=== PATIENT | female | born 1950 | race Caucasian/White ===

== ENCOUNTER 2021-06-15 11:38 | Inpatient (IN) | payer MEDICARE, BC ==
[~2021-06-15] VITALS: Ht 160 cm; Wt 79.4 kg
[2021-06-15] MEDS ORDERED: DEXAMETHASONE SOD PHOSPHATE 10 MG/ML VIAL ONE (12:27)
[2021-06-15] MEDS ORDERED: AZITHROMYCIN 500 MG in IV D5W 250 ML IV ONE (12:30)
[2021-06-15] MEDS ORDERED: DEXAMETHASONE SOD PHOSPHATE 6 MG in IV D5W 50 ML IV ONE (12:30)
[2021-06-15] MEDS ORDERED: ALPR0.5T8 PO (12:51)
[2021-06-15] MEDS ORDERED: TEMA30CA PO (12:51)
[2021-06-15] MEDS ORDERED: LEVO75TA7 PO (12:51)
[2021-06-15] MEDS ORDERED: LIRA0.6P2 SQ (12:51)
[2021-06-15] MEDS ORDERED: RAME8TAB24 PO (12:51)
[2021-06-15] MEDS ORDERED: QUET25TA PO (12:51)
[2021-06-15 13:11] LABS: ABG BASE EXCESS 0.8 mmol/L; ABG OXYGEN SATURATION 95.8 % (92.0-98.5); ABG PCO2 35.6 mmHg (35.0-45.0); ABG PH 7.453 (7.350-7.450); ABG PO2 85.8 mmHg (75.0-100.0); AaDO2 158.5 mmHg; MetHb 0.3 % (0.0-1.5); O2Hb 95.5 % (94.0-97.0); SITE, ABG Right Radial; VENT MODE, BG NASAL CANNULA
--- NOTE | 2021-06-15 13:13 | NUR ---
FAHEEM RELAYED TO . NO NEED FOR HO FLOW O2 AT THIS TIME.
[2021-06-15 13:14] LABS: BASOPHILS % (AUTO) 0.7 % (0.0-2.0); HEMATOCRIT 44 % (33-45); HEMOGLOBIN 14.6 g/dL (11.5-14.8); LYMPHOCYTES # (AUTO) 0.5 K/uL (0.8-4.8); LYMPHOCYTES % (AUTO) 12.7 % (20.0-44.0); MEAN CORPUSCULAR HGB CONC 33 g/dl (31.0-36.0); MEAN CORPUSCULAR VOLUME 91 fL (82-100); MONOCYTES # (AUTO) 0.4 K/uL (0.1-1.30); MONOCYTES % (AUTO) 10.9 % (2.0-12.0); NEUTROPHILS % (AUTO) 75.7 % (43.0-81.0); PLATELET COUNT (AUTO) 133 K/uL (150-450); RED BLOOD CELL COUNT(AUTO) 4.87 MIL/uL (4.0-5.2); WHITE BLOOD COUNT (AUTO) 3.9 K/uL (4.3-11.0)
[2021-06-15 13:20] LABS: CALCIUM, SERUM 8.7 mg/dL (8.5-10.1); CARBON DIOXIDE 28 mmol/L (21-32); CHLORIDE 102 mmol/L (98-107); CREATININE 0.9 mg/dL (0.6-1.3); GLUCOSE 207 mg/dL (74-106); POTASSIUM 4.3 mmol/L (3.5-5.1); SODIUM SERUM 139 mmol/L (136-145); UREA NITROGEN, BLOOD 11 mg/dL (7-18)
[2021-06-15 13:33] LABS: ALANINE AMINOTRANSFERASE 53 U/L (12-78); ALBUMIN 3.3 g/dL (3.4-5.0); ALKALINE PHOSPHATASE 64 U/L (46-116); ASPARTATE AMINOTRANSFERASE 47 U/L (15-37); BILIRUBIN,TOTAL 0.8 mg/dL (0.2-1.0)
--- NOTE | 2021-06-15 13:35 | NUR ---
CALLED NURSING SUP FOR TELE BED.
--- NOTE | 2021-06-15 13:53 | NUR ---
DAUGHTER MEAGHAN [phone]
[2021-06-15] MEDS ORDERED: CEFEPIME 1 GM in IV D5W 50 ML IV SCH (14:00)
[2021-06-15] MEDS ORDERED: ONDANSETRON HCL/PF 4 MG/2 ML VIAL IVP PRN (14:00)
[2021-06-15] MEDS ORDERED: ALBUTEROL SULFATE 8 GM HFA.AER.AD IH PRN (14:00)
[2021-06-15] MEDS ORDERED: DEXAMETHASONE SOD PHOSPHATE 6 MG in IV D5W 50 ML IV SCH (14:00)
[2021-06-15] MEDS ORDERED: DEXTROSE 50%-WATER 50 ML DISP.SYRIN IV PRN (14:00)
[2021-06-15] MEDS ORDERED: ACETAMINOPHEN 325 MG TABLET PO PRN (14:00)
--- NOTE | 2021-06-15 14:05 | NUR ---
NURSING SUP GAVE TELE BED 110. NURSING SUP ASKING IF WE CAN TRANSPORT PATIENT AFTER 1415.
[2021-06-15 14:17] LABS: CREATINE KINASE, TOTAL 85 U/L (26-192); FERRITIN 514 ng/mL (8-388)
[2021-06-15 14:28] LABS: C-REACTIVE PROTEIN 4.6 mg/dL (0.0-0.9)
--- NOTE | 2021-06-15 14:39 | NUR ---
REPORT GIVEN TO MELINA HARMON FOR LILLIAM
--- NOTE | 2021-06-15 14:51 | NUR ---
PT TRANSPORTED TO UNIT ON [facility] WITH EMT AND RN AT BEDSIDE WITH ACLS PROTOCOL. NAD NOTED DURING TRANSPORT. PT TRANSFERRED FROM [facility] TO BED ON STEADY GAIT WITH MULU DISTRESS
--- NOTE | 2021-06-15 15:00 | NUR ---
RN NOTE Received patient from ER, transported via gurney and escorted by 1 transport staff and an RN. Patient was able to safely ambulate from gurney to bed with minimal assist. Bedside report given by endorsing SUPERINTENDENT GREENS Acosta. Admitted patient to this unit with admitting Dx of Covid 19 and PNA and with PMHx of DM, Anxiety, Hypothyroidism and Obesity. Patient is A/O x4, verbally responsive, denies any pain and discomfort at this time. Patient on O2 @ 5lpm via NC with O2 sat 97%. Patient noted with some SOB with exertion but resolves with rest. IV Acces on Right AC 20 gauge intact and patent. Skin warm, dry and intact. Head to toe body assessment done with another RN for witness. Dr. Samaniego called and reported positive Covid Antigen result for patient. PCR still pending. Unit and room orientation provided to patient. Call light within easy reach, bed locked and is in lowest position. Kept patient clean and dry. Will continue to monitor.
[2021-06-15 15:49] LABS: D-DIMER 0.55 mg/L(FEU (0.17-0.50)
[2021-06-15 16:00] VITALS: BP 117/67
[2021-06-15] MEDS ORDERED: CEFEPIME 2 GM in IV D5W 100 ML IV SCH (16:00)
[2021-06-15] MEDS ORDERED: REMDESIVIR (CHARGED) 200 MG, *LOADING DOSE 1 EA in IV NS 0.9% 210 ML IV ONE (16:00)
[2021-06-15] MEDS ORDERED: DOXYCYCLINE HYCLATE (100 MG) 100 MG TABLET PO SCH (17:00)
[2021-06-15] MEDS: DEXAMETHASONE SOD PHOSPHATE 4 MG/ML VIAL IV SCH (17:12)
[2021-06-15] MEDS: ENOXAPARIN SODIUM 40 MG/0.4 ML DISP.SYRIN SQ SCH (17:12)
[2021-06-15] MEDS: BLOOD SUGAR DIAGNOSTIC 1 EACH STRIP IN SCH ×2 (17:54→22:40)
[2021-06-15] MEDS: INSULIN REGULAR, HUMAN 100 UNIT/ML 3 ML VIAL SQ PRN ×2 (17:55→22:30)
--- NOTE | 2021-06-15 18:46 | NUR ---
RN Closing Note Patient comfortably resting in bed, denies pain at this time. Patient awake and A/O x4. Patient on O2 @ 5lpm via NC, SOB with exertion but is resolved when resting. Patient's VS otherwise WNL. IV access on Right AC intact and patent and flushing well. All needs met, all due meds given as ordered. Kept patient clean and dry. Call light within easy reach, bed locked and is in lowest position. Will endorse to incoming nurse for continuity of care
--- NOTE | 2021-06-15 19:45 | NUR ---
RN NOTE PT RECEIVED IN BED. PT IS ON 5L OF O2 VIA NC SHOWING NO S/S OF RESP DISTRESS. BREATHING EVEN AND UNLABORED. PT IS A/OX4. PT IS AMBULATORY. SKIN INTACT. IV LINE ON RIGHT AC GAUGE 20 NOTED. LINE FLUSHED, PATENT, AND INTACT WITH NO SIGNS OF INFILTRATION. ALL SAFETY MEASURES IMPLEMENTED. CALL LIGHT WITHIN REACH, BED ALARM ON, BED LOCKED AND IN LOWEST POSITION. WILL CONTINUE TO MONITOR AND ASSESS FOR ANY CHANGES.
[2021-06-15 20:00] VITALS: BP 115/66
[2021-06-16] VITALS: BP 114/67
[2021-06-16 04:00] VITALS: BP 109/66
[2021-06-16 06:26] LABS: BASOPHILS % (AUTO) 0.3 % (0.0-2.0); HEMATOCRIT 40 % (33-45); HEMOGLOBIN 13.6 g/dL (11.5-14.8); LYMPHOCYTES # (AUTO) 0.6 K/uL (0.8-4.8); LYMPHOCYTES % (AUTO) 24.7 % (20.0-44.0); MEAN CORPUSCULAR HGB CONC 34 g/dl (31.0-36.0); MEAN CORPUSCULAR VOLUME 90 fL (82-100); MONOCYTES # (AUTO) 0.3 K/uL (0.1-1.30); MONOCYTES % (AUTO) 12.1 % (2.0-12.0); NEUTROPHILS # (AUTO) 1.5 K/uL (1.8-8.9); NEUTROPHILS % (AUTO) 62.9 % (43.0-81.0); PLATELET COUNT (AUTO) 130 K/uL (150-450); RED BLOOD CELL COUNT(AUTO) 4.46 MIL/uL (4.0-5.2); WHITE BLOOD COUNT (AUTO) 2.3 K/uL (4.3-11.0)
--- NOTE | 2021-06-16 06:34 | NUR ---
RN NOTE NO CHANGES IN PT CONDITION DURING SHIFT. PT IS ON 5L OF O2 VIA NC SHOWING NO S/S OF RESP DISTRESS. BREATHING EVEN AND UNLABORED. OXYGEN SATURATION >93% DURING SHIFT. PT IS A/OX4. IV LINE ON RIGHT AC GAUGE 20 NOTED. LINE FLUSHED, PATENT, AND INTACT. ALL DUE MEDS GIVEN ORDERED. PT KEPT CLEAN AND COMFORTABLE. ALL SAFETY MEASURES IMPLEMENTED. CALL LIGHT WITHIN REACH. BED ALARM ON. BED LOCKED AND IN LOWEST POSITION. WILL ENDORSE TO MORNING SHIFT RN FOR LILLIAM.
[2021-06-16 06:39] LABS: ALBUMIN 2.9 g/dL (3.4-5.0); BILIRUBIN,TOTAL 0.6 mg/dL (0.2-1.0); CALCIUM, SERUM 9.2 mg/dL (8.5-10.1); CREATININE 0.9 mg/dL (0.6-1.3); POTASSIUM 5.1 mmol/L (3.5-5.1); TOTAL PROTEIN, SERUM 7.5 g/dL (6.4-8.2)
[2021-06-16 08:00] VITALS: BP 129/78
--- NOTE | 2021-06-16 08:01 | NUR ---
teletypewriter installer note patient in bed , all needs attended with o2 5l , saturation 94% at this time,patient alert oriented , on tele monitor sb hr 55, rt ac hl intat and flushed well . bed in lowest and locked position , will monitor closely no sob noted at this time
[2021-06-16] MEDS: DEXAMETHASONE SOD PHOSPHATE 4 MG/ML VIAL IV SCH (08:31)
[2021-06-16] MEDS: ENOXAPARIN SODIUM 40 MG/0.4 ML DISP.SYRIN SQ SCH (08:32)
[2021-06-16] MEDS: INSULIN REGULAR, HUMAN 100 UNIT/ML 3 ML VIAL SQ PRN ×4 (08:34→21:26)
[2021-06-16] MEDS: BLOOD SUGAR DIAGNOSTIC 1 EACH STRIP IN SCH ×4 (08:40→21:25)
[2021-06-16] MEDS: GUAIFENESIN/CODEINE 10 ML UDC PO PRN (08:43)
--- NOTE | 2021-06-16 10:26 | NUR ---
telephone appointment clerk note assisted to bsc able to make bm, keep clean dry
[2021-06-16 12:00] VITALS: BP 111/66
--- NOTE | 2021-06-16 12:18 | NUR ---
SPECIAL EDUCATION PARA PROFESSIONAL NOTE SEEN BY DR JOHNSON UPDATED PATIENT CONDITION
--- NOTE | 2021-06-16 15:00 | NUR ---
TELERN NOTE ALL NEEDS ATTENDED, NOT IN DISTRESS, KEEP CLEAN DRY , CALL LIGHT WITHIN REACH , WILL CONT TO MONITOR NO SOB NOTED AT THIS TIME
[2021-06-16] MEDS: REMDESIVIR (CHARGED) 100 MG in IV NS 0.9% 230 ML IV SCH (15:03)
[2021-06-16 16:00] VITALS: BP 126/61
--- NOTE | 2021-06-16 17:45 | NUR ---
REVENUE OFFICER NOTE DAUGHTER WANTS DOCTOR TO CALL HER , CALLED TO DR JOHNSON LEFT A MESSAGE TO CALL DAUGHTER TO BE CALLED
--- NOTE | 2021-06-16 18:23 | NUR ---
COAL INSPECTOR NOTE ALL NEEDS ATTENDED, CALL LIGHT WITHIN REACH , NO SOB NOTE HAVING DINNER ,NOT IN DISTRESS
[2021-06-16] MEDS ORDERED: ALPRAZOLAM 0.25 MG TABLET PO PRN (19:00)
[2021-06-16] MEDS ORDERED: HOME MED MISCELLANEOUS XX SCH (19:30)
--- NOTE | 2021-06-16 19:30 | NUR ---
RN OPENING NOTES: RECEIVED PT A/OX4 IN BED RESTING COMFORTABLY. PATIENT IN NO S/SX OF ACUTE DISTRESS AT THIS TIME. NO SOB NOTED. PATIENT'S BREATHING IS EVEN AND UNLABORED. PATIENT IS ON 5L OF OXYGEN VIA NC; TOLERATING WELL. PATIENT ON CONSISTENT CARB DIET; TOLERATES WELL. NOTED IV SITE ON R AC#20 ; PATENT, INTACT AND FLUSHING WELL; NO S/S OF INFECTION OR INFILTRATION. SAFETY MEASURES HAVE BEEN PROVIDED AND IMPLEMENTED. PATIENT BED ALARM IS ON. HEAD OF BED ELEVATED. BED IS LOCKED, IN LOWEST POSITION AND SIDE RAILS UP. CALL LIGHT WITHIN REACH OF THE PATIENT. APPLICABLE ISOLATION PRECAUTIONS IN PLACE. WILL CONTINUE TO MONITOR AND REASSESS FOR ANY CHANGES AND WILL CARRY OUT ANY ONGOING AND ACTIVE MD ORDER.
[2021-06-16 20:00] VITALS: BP 127/73
[2021-06-16] MEDS: QUETIAPINE FUMARATE 25 MG TABLET PO SCH (21:14)
[2021-06-17] VITALS: BP 111/57
--- NOTE | 2021-06-17 | NUR ---
RN NOTES PATIENT REMAINED TO BE IN NO SIGNS OF ACUTE RESPIRATORY DISTRESS , VITAL SIGNS WNL AT THIS TIME. CALCULATOR OPERATOR MADE AWARE. WILL CONTINUE TO MONITOR AND REASSESS FOR ANY CHANGES THROUGHOUT THE SHIFT.
[2021-06-17 04:00] VITALS: BP 121/62
--- NOTE | 2021-06-17 06:53 | NUR ---
RN CLOSING NOTE: PATIENT REMAINS IN ROOM IN NO SIGNS OF RESPIRATORY DISTRESS, PATIENT STILL ON 5L OF 02 VIA NC ;TOLERATING WELL SATURATING @ >95% SP02. SAFETY MEASURES IMPLEMENTED, BED IN LOWEST POSITION, LOCKED, SIDE RAILS UP, CALL LIGHT WITHIN REACH. ALL NEEDS AND ORDERS ADDRESSED DURING THE SHIFT. IV ACCESS MAINTAINED INTACT, SECURED AND FLUSHING WELL. ALL DUE MEDS GIVEN ORDERED & SCHEDULED ; PATIENT TOLERATED WELL. PATIENT KEPT CLEAN AND COMFORTABLE WITHIN THE SHIFT. PATIENT ENDORSED TO INCOMING SHIFT RN WITH STABLE VITAL SIGN AND FOR CONTINUITY OF CARE.
--- NOTE | 2021-06-17 07:37 | NUR ---
TELE NURSE OPENING NOTE RECEIVE REPORT FROM STEEL ROD BUSTER NURSE. PATIENT WAS WELL RESTED AND COMFORTABLE UPON MORNING ASSESSMENT. PATIENT HAD MINOR COMPLAIN OF SORE THROAT. WILL LOOK AT MEDICATION ORDERS TO SEE IF THERE IS MEDICATION HAVE BEEN PRESCRIBE FOR SORE THROAT. PROVIDE COMFORT MEASURE. BED IS IN LOWEST POSITION WITH 3 SIDE RAIL UP. CALL LIGHT WITHIN REACH. WILL CONTINUE TO MONITOR THROUGH OUT THE SHIFT.
[2021-06-17] MEDS: GUAIFENESIN/CODEINE 10 ML UDC PO PRN (08:02)
[2021-06-17] MEDS: LEVOTHYROXINE SODIUM 75 MCG TABLET PO SCH (08:03)
[2021-06-17] MEDS: INSULIN REGULAR, HUMAN 100 UNIT/ML 3 ML VIAL SQ PRN ×4 (08:05→21:30)
[2021-06-17] MEDS: BLOOD SUGAR DIAGNOSTIC 1 EACH STRIP IN SCH ×4 (08:16→21:11)
[2021-06-17] MEDS: ENOXAPARIN SODIUM 40 MG/0.4 ML DISP.SYRIN SQ SCH (08:27)
[2021-06-17] MEDS: DEXAMETHASONE SOD PHOSPHATE 4 MG/ML VIAL IV SCH (08:28)
[2021-06-17] MEDS ORDERED: MENTHOL/CETYLPYRD (CEPACOL) 1 LOZ LOZENGE PO PRN (08:30)
--- NOTE | 2021-06-17 08:36 | NUR ---
TELE NURSE NOTE PROVIDE MORNING CARE. PROVIDE AND ADMINISTER ALL MORNING MEDICATION ACCORDING TO DOCTOR ORDERS. PROVIDE ROBITUSSIN FOR SORE THROAT. WILL CONTINUE TO MONITOR.
[2021-06-17 08:39] VITALS: BP 112/64
[2021-06-17 12:00] VITALS: BP 124/70
[2021-06-17 12:23] LABS: ALBUMIN 2.8 g/dL (3.4-5.0); BILIRUBIN,DIRECT 0.2 mg/dL (0.0-0.2); BILIRUBIN,TOTAL 0.5 mg/dL (0.2-1.0); CALCIUM, SERUM 8.8 mg/dL (8.5-10.1); CREATININE 0.9 mg/dL (0.6-1.3); POTASSIUM 4.5 mmol/L (3.5-5.1); TOTAL PROTEIN, SERUM 6.9 g/dL (6.4-8.2)
[2021-06-17] MEDS: REMDESIVIR (CHARGED) 100 MG in IV NS 0.9% 230 ML IV SCH (15:07)
[2021-06-17 16:11] VITALS: BP 123/68
--- NOTE | 2021-06-17 18:31 | NUR ---
TELE NURSE CLOSING NOTE PATIENT REMAIN STABLE AND COMFORTABLE WITH NO SIGN OF DISTRESS. PATIENT ABLE TO AMBULATE ON HER OWN. ALL MEDICATION FROM AM SHIFT WAS GIVEN, GLUCOSE CHECK AND INSULIN GIVEN ACCORDING TO SLIDING SCALE. PROVIDE COMFORT MEASURE. PUT BED IN THE LOWEST POSITION WITH 3 SIDE RAIL UP. HEAD OF THE BED ELEVATED. CALL LIGHT WITHIN REACH. WILL CONTINUE TO MONITOR AND ENDORSE TO ON COMING NURSE.
--- NOTE | 2021-06-17 19:15 | NUR ---
RN OPENING NOTE REC'D PT IN BED. AAOX4. PT IS ON 4L OF O2 VIA NC. TOLERATING WELL. NO RESP DISTRESS NOTED, BREATHING EVEN AND UNLABORED. PT DENIES PAIN. PT ON TELE MONITORING PRESENTS WITH NSR, HR OF 61 AT THIS TIME. PT HAS IV SITE RAC #20. ALL NEEDS ATTENDED AT THIS TIME. PT IS ABLE TO AMBULATE, WITH STEADY GAIT. EDUCATED PT TO KEEP NC ON WHILE IN BED, SAFETY MEASURES IN PLACE. ISO PRECAUTIONS IN PLACE FOR COVID POSITIVE RESULT. HOB ELEVATED TOLERATED. SIDE RAILS UP X2, BED LOCKED IN LOWEST POSITION. CALL LIGHT WITHIN REACH. WILL CONT TO MONITOR THROUGHOUT SHIFT.
[2021-06-17 20:00] VITALS: BP 126/61
[2021-06-17] MEDS: ALPRAZOLAM 0.5 MG TABLET PO PRN (20:23)
--- NOTE | 2021-06-17 20:29 | NUR ---
pt expresses anxiety, requests medication, given as ordered prn. will cont to monitor
[2021-06-17] MEDS: QUETIAPINE FUMARATE 25 MG TABLET PO SCH (21:11)
[2021-06-17] MEDS: TEMAZEPAM 15 MG CAPSULE PO PRN (21:41)
--- NOTE | 2021-06-17 21:42 | NUR ---
DAUGHTER TO F/U WITH ID JOE daughter, wishes to follow up with ID tomorrow, requests to speak with her regarding medications, will endorse to day shift nurse
[2021-06-18] VITALS (7 sets, daily range): BP systolic 105–137; BP diastolic 65–71
--- NOTE | 2021-06-18 02:43 | NUR ---
PT AT THIS TIME RESTING WELL, NO DISTRESS NOTED. VSS. WILL CONT TO MONITOR CLOSELY, MAKING ROUNDS
--- NOTE | 2021-06-18 06:37 | NUR ---
RN CLOSING NOTE PATIENT REMAINS IN ROOM, RESTING IN NO SIGNS OF RESPIRATORY DISTRESS, PATIENT STILL ON 5L OF 02. BREATHING IS EVEN AND UNLABORED. PT DENIES SOB. DENIES PAIN. SAFETY MEASURES IMPLEMENTED, BED LOCKED IN LOWEST POSITION WITH SIDE RAILS UP X2. CALL LIGHT WITHIN REACH. ALL NEEDS AND ORDERS ATTENDED THROUGHOUT SHIFT. IV ACCESS MAINTAINED INTACT AND SECURE. ALL DUE MEDS GIVEN ORDERED PATIENT TOLERATED WELL. PATIENT KEPT CLEAN AND COMFORTABLE. WILL ENDORSE TO ONCOMING RN FOR CONTINUITY OF CARE.
[2021-06-18 07:17] LABS: BASOPHILS % (AUTO) 0.1 % (0.0-2.0); HEMATOCRIT 40 % (33-45); HEMOGLOBIN 13.2 g/dL (11.5-14.8); LYMPHOCYTES # (AUTO) 0.7 K/uL (0.8-4.8); LYMPHOCYTES % (AUTO) 13.5 % (20.0-44.0); MEAN CORPUSCULAR HGB CONC 34 g/dl (31.0-36.0); MEAN CORPUSCULAR VOLUME 90 fL (82-100); MONOCYTES # (AUTO) 0.4 K/uL (0.1-1.30); MONOCYTES % (AUTO) 8.1 % (2.0-12.0); NEUTROPHILS # (AUTO) 4.3 K/uL (1.8-8.9); NEUTROPHILS % (AUTO) 78.3 % (43.0-81.0); PLATELET COUNT (AUTO) 150 K/uL (150-450); RED BLOOD CELL COUNT(AUTO) 4.38 MIL/uL (4.0-5.2); WHITE BLOOD COUNT (AUTO) 5.5 K/uL (4.3-11.0)
--- NOTE | 2021-06-18 07:30 | NUR ---
TELE NURSE OPENING NOTE RECEIVE PATIENT FROM PM NURSE. A/O X4. ON NASAL CANULA ON 5L. ORDER BY THE DOCTOR TODAY IS TO AMBULATE. SKIN INTACT. PATIENT ON MONITOR WITH SINUS RHYTHM. NO DISCOMFORT. HEP LOCK ON RIGHT AC WITH 20G. SITE CLEAN. CARE DISCUSSED, PATIENT VERBALIZED UNDERSTANDING. ISOLATION PRECAUTION OBSERVED. SAFETY MEASURE IN PLACE, BED LOW/LOCKED, HOB UP 30 DEGREE, SR UP X3, CALL LIGHT WITHIN REACH, WILL CONTINUE TO MONITOR.
[2021-06-18 07:37] LABS: ALBUMIN 2.6 g/dL (3.4-5.0); BILIRUBIN,DIRECT 0.2 mg/dL (0.0-0.2); BILIRUBIN,TOTAL 0.5 mg/dL (0.2-1.0); CALCIUM, SERUM 8.7 mg/dL (8.5-10.1); CREATININE 0.8 mg/dL (0.6-1.3); POTASSIUM 5.3 mmol/L (3.5-5.1); TOTAL PROTEIN, SERUM 6.5 g/dL (6.4-8.2)
[2021-06-18] MEDS: BLOOD SUGAR DIAGNOSTIC 1 EACH STRIP IN SCH ×4 (08:22→22:17)
[2021-06-18] MEDS: ENOXAPARIN SODIUM 40 MG/0.4 ML DISP.SYRIN SQ SCH (08:23)
[2021-06-18] MEDS: LEVOTHYROXINE SODIUM 75 MCG TABLET PO SCH (08:24)
[2021-06-18] MEDS: INSULIN REGULAR, HUMAN 100 UNIT/ML 3 ML VIAL SQ PRN ×2 (08:26→22:19)
[2021-06-18] MEDS: DEXAMETHASONE SOD PHOSPHATE 4 MG/ML VIAL IV SCH (08:33)
--- NOTE | 2021-06-18 08:45 | NUR ---
RN NOTES [place] STARTED RIGHT AC G 22. GOOD BLOOD RETURN. SECURED
--- NOTE | 2021-06-18 09:30 | NUR ---
RN NOTES DUE MEDS GIVEN
[2021-06-18] MEDS ORDERED: SODIUM POLYSTYRENE SULFONATE 15 G/60 ML BOTTLE PO ONE (11:30)
[2021-06-18] MEDS: REMDESIVIR (CHARGED) 100 MG in IV NS 0.9% 80 ML IV SCH (15:08)
--- NOTE | 2021-06-18 18:32 | NUR ---
TELE NURSE CLOSING NOTE. PATIENT REMAIN STABLE THROUGHOUT THE SHIFT. REFUSES THE LAST TWO ACCU CHECK. PATIENT SHOWS NO SIGN OF DISTRESS. NO DISCOMFORT. BED LOWEST POSITION WITH HOB UP 30 DEGREE. SAFETY MEASURE PROVIDED. ISOLATION MEASURE. PROVIDE COMFORT MEASURE. PATIENT AMBULATE. WILL CONTINUE TO MONITOR AND ENDORSE TO ON COMING NURSE.
--- NOTE | 2021-06-18 22:15 | NUR ---
RN NOTES ACCU CHECK DONE ; INITIAL RESULT : 467; REPEAT: 500MG/DL- ADMINISTERED 10U OF INSULIN AND NOTIFIED MD; NO ADDITIONAL UNITS OF INSULIN PER MD, MD ORDERED CHANGE OF SLIDING SCALE FROM MILD TO MODERATE MOVING FORWARD. DIRECT MARKETING ANALYST MADE AWARE.
[2021-06-18] MEDS: QUETIAPINE FUMARATE 25 MG TABLET PO SCH (22:18)
[2021-06-19] VITALS: BP 115/62
--- NOTE | 2021-06-19 | NUR ---
RN NOTES PATIENT REMAINED TO BE IN NO SIGNS OF ACUTE RESPIRATORY DISTRESS , VITAL SIGNS WNL AT THIS TIME. WILL CONTINUE TO MONITOR AND REASSESS FOR ANY CHANGES THROUGHOUT THE SHIFT.
[2021-06-19] MEDS ORDERED: DEXTROSE 50%-WATER 50 ML DISP.SYRIN IV PRN (00:30)
[2021-06-19] MEDS ORDERED: *INSULIN REGULAR(HUMULIN R)HUM 100 UNIT/ML VIAL SQ PRN (00:30)
[2021-06-19 04:00] VITALS: BP 126/72
[2021-06-19 06:33] LABS: BASOPHILS % (AUTO) 0.1 % (0.0-2.0); EOSINOPHILS % (AUTO) 0.1 % (0.0-6.0); HEMATOCRIT 39 % (33-45); HEMOGLOBIN 13.1 g/dL (11.5-14.8); LYMPHOCYTES # (AUTO) 0.7 K/uL (0.8-4.8); LYMPHOCYTES % (AUTO) 12.4 % (20.0-44.0); MEAN CORPUSCULAR HGB CONC 33 g/dl (31.0-36.0); MEAN CORPUSCULAR VOLUME 91 fL (82-100); MONOCYTES # (AUTO) 0.4 K/uL (0.1-1.30); NEUTROPHILS # (AUTO) 4.3 K/uL (1.8-8.9); NEUTROPHILS % (AUTO) 80.4 % (43.0-81.0); PLATELET COUNT (AUTO) 153 K/uL (150-450); RED BLOOD CELL COUNT(AUTO) 4.33 MIL/uL (4.0-5.2); WHITE BLOOD COUNT (AUTO) 5.4 K/uL (4.3-11.0)
[2021-06-19 06:44] LABS: ALBUMIN 2.6 g/dL (3.4-5.0); BILIRUBIN,DIRECT 0.2 mg/dL (0.0-0.2); BILIRUBIN,TOTAL 0.4 mg/dL (0.2-1.0); CREATININE 0.8 mg/dL (0.6-1.3); POTASSIUM 4.2 mmol/L (3.5-5.1); TOTAL PROTEIN, SERUM 6.3 g/dL (6.4-8.2)
--- NOTE | 2021-06-19 07:38 | NUR ---
RN OPENING NOTES RECEIVED PT IN BED, IN PRONE POS. PT A/OX4. PT HAS NO C/O SOB AT THIS TIME. NO DISTRESS NOTED. PT IS AMBULATORY BUT NEEDS SOME ASSISTANCE USING THE COMMODE. PT HAS R AC #20, PATENT, WITH NO SIGNS OF INFILTRATION. SAFETY MEASURES TENDERED. BED IN LOWEST POSITION, LOCKED WITH CALL LIGHT WITHIN REACH. WILL CONTINUE TO MONITOR.
[2021-06-19 08:00] VITALS: BP 123/73
[2021-06-19] MEDS: BLOOD SUGAR DIAGNOSTIC 1 EACH STRIP VI SCH ×4 (08:02→22:32)
[2021-06-19] MEDS: DEXAMETHASONE SOD PHOSPHATE 4 MG/ML VIAL IV SCH (08:09)
[2021-06-19] MEDS: ENOXAPARIN SODIUM 40 MG/0.4 ML DISP.SYRIN SQ SCH (08:10)
[2021-06-19] MEDS: INSULIN REGULAR, HUMAN 100 UNIT/ML 3 ML VIAL SQ PRN ×3 (08:11→16:56)
[2021-06-19] MEDS: LEVOTHYROXINE SODIUM 75 MCG TABLET PO SCH (08:20)
[2021-06-19 08:35] LABS: ABG BASE EXCESS 3.5 mmol/L; ABG OXYGEN SATURATION 88.7 % (92.0-98.5); ABG PCO2 39.2 mmHg (35.0-45.0); ABG PH 7.462 (7.350-7.450); ABG PO2 55.4 mmHg (75.0-100.0); COHb 0.3 % (0.5-1.5); MetHb 0.3 % (0.0-1.5); O2Hb 88.2 % (94.0-97.0); SITE, ABG Right Radial; VENT MODE, BG nasal cannula
[2021-06-19 12:00] VITALS: BP 113/59
[2021-06-19] MEDS: REMDESIVIR (CHARGED) 100 MG in IV NS 0.9% 80 ML IV SCH (14:01)
[2021-06-19 16:00] VITALS: BP 136/66
--- NOTE | 2021-06-19 16:53 | NUR ---
RN NOTES; B/S TAKEN AT 417, REPEAT WAS 450. NOTIFIED DNP ELIZABETH QUILES. INSULIN GIVEN 15U PER SLIDING SCALE. WILL RECHECK B/S AND CONTINUE TO MONITOR.
--- NOTE | 2021-06-19 18:51 | NUR ---
RN CLOSING NOTES; PT IS IN BED RESTING. PT A/OX4. ON NC 5L WITH 02 SAT AT 96%. ALL MEDS GIVEN AND TOLERATED WELL. #4 REMDESIVIR GIVEN. PT IS AMB. WITH ASSISTANCE. LAST B/S RESULTS OF 450, 15U GIVEN. DNP AWARE. PT KEPT CLEAN, DRY, AND COMFORTABLE. PT IN STABLE CONDITION. SAFETY MEASURES RENDERED, WITH BED IN LOWEST POSITION. LOCK, AND CALL LIGHT WITHIN REACH. ENDORSED TO SILK WINDING MACHINE OPERATOR RN.
--- NOTE | 2021-06-19 19:53 | NUR ---
RN NOTE PATIENT RESTING IN BED, SIDE-LYING POSITION. ALERT AND ORIENTED X4. ON O2 5L VIA NASAL CANNULA, NO SHORTNESS OF BREATH NOTED. RESPIRATIONS EVEN AND UNLABORED. DENIES ANY PAIN OR DISCOMFORT. IV ACCESS ON RIGHT AC #20, PATENT AND INTACT. BED LOCKED AND IN LOWEST POSITION. CALL LIGHT WITHIN REACH. ALL NEEDS ANTICIPATED.
[2021-06-19 20:00] VITALS: BP 149/69
[2021-06-19] MEDS: QUETIAPINE FUMARATE 25 MG TABLET PO SCH (21:41)
[2021-06-19] MEDS: TEMAZEPAM 15 MG CAPSULE PO PRN (22:28)
[2021-06-19] MEDS: ALPRAZOLAM 0.5 MG TABLET PO PRN (22:28)
[2021-06-20] VITALS: BP 119/80
[2021-06-20 04:00] VITALS: BP 131/63
--- NOTE | 2021-06-20 07:14 | NUR ---
RN NOTE PATIENT ALERT AND ORIENTED X4. ON O2 5L VIA NASAL CANNULA, NO SHORTNESS OF BREATH NOTED. IV ACCESS ON RIGHT AC #20, PATENT AND INTACT. NO SIGNIFICANT CHANGES DURING THIS SHIFT. BED LOCKED AND IN LOWEST POSITION. CALL LIGHT WITHIN REACH. ENDORSED TO AM SHIFT.
--- NOTE | 2021-06-20 07:37 | NUR ---
RN OPENING NOTES RECEIVED PT IN BED, IN SIDE LYING POS. PT A/OX4. PT HAS NO C/O SOB AT THIS TIME. NO DISTRESS NOTED. PT IS AMBULATORY BUT NEEDS SOME ASSISTANCE USING THE COMMODE. PT HAS R AC #20, PATENT, NO REDNESS NOTED, NO INFECTION NOTED. SAFETY MEASURES TENDERED. BED IN LOWEST POSITION, LOCKED WITH CALL LIGHT WITHIN REACH. WILL CONTINUE TO MONITOR.
[2021-06-20] MEDS: BLOOD SUGAR DIAGNOSTIC 1 EACH STRIP VI SCH ×3 (07:56→16:32)
[2021-06-20 08:00] VITALS: BP 129/60
[2021-06-20] MEDS: LEVOTHYROXINE SODIUM 75 MCG TABLET PO SCH (08:04)
[2021-06-20] MEDS: DEXAMETHASONE SOD PHOSPHATE 4 MG/ML VIAL IV SCH (08:04)
[2021-06-20] MEDS: ENOXAPARIN SODIUM 40 MG/0.4 ML DISP.SYRIN SQ SCH (08:06)
[2021-06-20] MEDS: INSULIN REGULAR, HUMAN 100 UNIT/ML 3 ML VIAL SQ PRN ×2 (08:07→11:14)
[2021-06-20 12:00] VITALS: BP 115/56
[2021-06-20] MEDS ORDERED: ENOX40DI SQ (12:32)
[2021-06-20] MEDS ORDERED: DEXA6TAB6 PO (12:32)
[2021-06-20 16:00] VITALS: BP 143/72
--- NOTE | 2021-06-20 16:32 | NUR ---
RN NOTES; ATTEMPTED TO GET ACCUCHECK. PT REFUSED. OFFERED AGAIN. PT STATES IM GOING HOME, SO I DONT NEED IT. EDUCATION DONE REGARDING RISKS. PT A/OX4, PT STATES UNDERSTANDING BUT STILL REFUSES. PT WILL BE DISCHARGED LATER. WAITING ON DAUGHTER TO CONFIRM RECEIPT OF DME. PT IS IN STABLE CONDITION.
--- NOTE | 2021-06-20 18:12 | NUR ---
DC NOTES; PT DC'S TO HOME IN STABLE CONDITION. DC INSTRUCTIONS GIVEN AND EXPLAINED TO PT. PT VERBALIZED UNDERSTANDING. ALL PAPERWORK SIGNED AND COMPLETED. ALL BELONGINGS SENT WITH PT. DME DELIVERED TO PT HOME. NO COMPLICATIONS NOTED. PT ESCORTED TO THE LOBBY BY NITA SHUKLA VIA WHEEL CHAIR. MET DAUGHTER CHERRY IN THE LOBBY. PT LEFT VIA PRIVATE VEHICLE.
== END 2021-06-20 18:47 | disposition home health service (06) | DRG 177 ==
LOC: ER 11:44 → TELE1 14:22
PROVIDERS: ADMIT Nurse Practitioner Acute Care; ATTEND Nurse Practitioner Acute Care
PROC: XW033E5 Introduction of Remdesivir Anti-infective into Peripheral Vein, Percutaneous Approach, New Technology Group 5 (ICD-10-PCS; principal; 2021-06-15)
DX: U07.1 COVID-19 (principal); J96.01 Acute respiratory failure with hypoxia; J12.82 Pneumonia due to coronavirus disease 2019; J15.9 Unspecified bacterial pneumonia; E44.1 Mild protein-calorie malnutrition; N17.9 Acute kidney failure, unspecified; F32.9 Major depressive disorder, single episode, unspecified; E03.9 Hypothyroidism, unspecified; K74.60 Unspecified cirrhosis of liver; E66.9 Obesity, unspecified; I10 Essential (primary) hypertension; Z79.899 Other long term (current) drug therapy; F41.9 Anxiety disorder, unspecified; Z68.35 Body mass index [BMI] 35.0-35.9, adult; D72.819 Decreased white blood cell count, unspecified; D69.59 Other secondary thrombocytopenia; E11.65 Type 2 diabetes mellitus with hyperglycemia; T38.0X5A Adverse effect of glucocorticoids and synthetic analogues, initial encounter; Y92.9 Unspecified place or not applicable; E86.0 Dehydration
CPT/HCPCS: 36415; 36600; 71045-TC; 80048-TC; 80053-TC; 80076-TC; 82550-TC; 82728-TC; 82803-TC; 82962-TC; 83605-TC; 83615-TC; 83880; 84484-TC; 85025-TC; 85378-TC; 85385-TC; 85730-TC; 86140-TC; 86480; 86704; 86803; 87040-TC; 87340; 87806; 97116-TC; 97530-TC; A4216; G0378; J0456; J0692; J1100; J1650; J1815; J7030; J7050; J7060; U0003